=== PATIENT | female | born 1955 | race Caucasian/White ===

== ENCOUNTER 2018-03-01 17:01 | Emergency (ER) | payer MEDICARE ==
[~2018-03-01] VITALS: Ht 165.1 cm; Wt 104.5 kg
[2018-03-01] MEDS ORDERED: BUPR50TA PO (17:23)
[2018-03-01] MEDS ORDERED: ACET1TAB16 PO (17:23)
[2018-03-01] MEDS ORDERED: TRAZ1TAB14 PO (17:23)
[2018-03-01] MEDS ORDERED: LIDOCAINE VISCOUS 2% SOLN 15ML UDC SS STA (17:34)
[2018-03-01] MEDS ORDERED: IPRATROPIUM 0.5MG/ALBUTEROL 2.5MG INH SOL UD 3ML (DUONEB)(J7620) NEB ONE (17:45)
[2018-03-01] MEDS ORDERED: BENZONATATE 100 MG CAP PO ONE (17:45)
[2018-03-01] MEDS ORDERED: IBUPROFEN 600 MG TAB PO ONE (17:45)
[2018-03-01] MEDS ORDERED: ACETAMINOPHEN 325 MG TAB PO ONE (17:45)
[2018-03-01 18:00] LABS: BASO % 0.4 % (0.0-1.0); EOS % 0.1 % (0.0-3.0); HEMATOCRIT 41.5 % (36.0-47.0); HEMOGLOBIN 13.5 g/dl (12.0-15.5); LYMPH % 28.8 % (24.0-44.0); MEAN CORPUSCULAR HEMOGLOBIN 29.5 pg (27.0-33.0); MEAN CORPUSCULAR HGB CONC 32.5 g/dl (32.0-36.5); MEAN CORPUSCULAR VOLUME 90.6 fl (80.0-96.0); MONO # 0.8 10^3/uL (0.0-0.8); MONO % 11.6 % (0.0-5.0); NEUTROPHILS # 4.1 10^3/uL (1.8-7.7); NEUTROPHILS % 58.7 % (36.0-66.0); PLATELET COUNT, AUTOMATED 340 10^3/uL (150-450); RED BLOOD COUNT 4.58 10^6/uL (4.00-5.40); WHITE BLOOD COUNT 6.9 10^3/uL (4.0-10.0)
[2018-03-01 18:24] LABS: BLOOD UREA NITROGEN 12 MG/DL (7-18); CALCIUM LEVEL 8.4 MG/DL (8.8-10.2); CARBON DIOXIDE LEVEL 26 MEQ/L (21-32); CHLORIDE LEVEL 106 MEQ/L (98-107); CREATININE FOR GFR 0.83 MG/DL (0.55-1.30); GLOMERULAR FILTRATION RATE > 60.0 (>45); GLUCOSE, FASTING 94 MG/DL (70-100); POTASSIUM SERUM 4.1 MEQ/L (3.5-5.1); SODIUM LEVEL 140 MEQ/L (136-145)
--- NOTE | 2018-03-01 18:32 | REP ---
Clinical: Cough . Comparison: None . Technique: PA and lateral. Findings: The mediastinum and cardiac silhouette are normal. The lung ayers are clear and without acute consolidation, effusion, or pneumothorax. The skeletal structures are intact and normal. Impression: 1. No acute cardiopulmonary process. Electronically Signed by Jeb Valenzuela MD 03/01/2018 06:23 P
[2018-03-01] MEDS ORDERED: POLYTRIM OPTH DROPS 10ML OU STA (18:54)
[2018-03-01] MEDS ORDERED: ALBUTEROL 90 MCG/ACT 8GM HFA INHALER INH ONE (19:00)
[2018-03-01] MEDS ORDERED: POLYSOL OP (19:47)
[2018-03-01] MEDS ORDERED: TESS100C PO (19:47)
[2018-03-01 19:51] VITALS: BP 129/68
== END 2018-03-01 19:52 | disposition home or self-care (01) ==
LOC: M ED 17:01
DX: J06.9 Acute upper respiratory infection, unspecified (principal); H10.023 Other mucopurulent conjunctivitis, bilateral; I38 Endocarditis, valve unspecified; Z88.8 Allergy status to other drugs, medicaments and biological substances; Z88.5 Allergy status to narcotic agent; Z79.899 Other long term (current) drug therapy

== ENCOUNTER 2018-03-03 11:01 | Emergency (ER) | payer MEDICARE ==
[~2018-03-03] VITALS: Ht 165.1 cm; Wt 102.3 kg
[~2018-03-03 11:01] MED LIST: ACET1TAB16 PO; BUPR50TA PO; POLYSOL OP; TESS100C PO; TRAZ1TAB14 PO
[2018-03-03 11:32] VITALS: BP 144/92
== END 2018-03-03 12:55 | disposition home or self-care (01) ==
LOC: M ED 11:01
DX: H10.33 Unspecified acute conjunctivitis, bilateral (principal); Z98.84 Bariatric surgery status; Z88.8 Allergy status to other drugs, medicaments and biological substances; Z88.5 Allergy status to narcotic agent; Z79.899 Other long term (current) drug therapy; Z79.2 Long term (current) use of antibiotics

== ENCOUNTER → 2018-03-18 | Outpatient (REF) | payer MEDICARE ==
[2018-03-18 12:15] LABS: HEMATOCRIT 38.3 % (36.0-47.0); HEMOGLOBIN 12.3 g/dl (12.0-15.5); MEAN CORPUSCULAR HEMOGLOBIN 29.5 pg (27.0-33.0); MEAN CORPUSCULAR HGB CONC 32.1 g/dl (32.0-36.5); MEAN CORPUSCULAR VOLUME 91.8 fl (80.0-96.0); PLATELET COUNT, AUTOMATED 479 10^3/uL (150-450); RED BLOOD COUNT 4.17 10^6/uL (4.00-5.40); WHITE BLOOD COUNT 5.4 10^3/uL (4.0-10.0)
[2018-03-18 12:27] LABS: ALBUMIN 3.3 GM/DL (3.2-5.2); ALT/SGPT 18 U/L (12-78); BILIRUBIN,TOTAL 0.5 MG/DL (0.2-1.0); BLOOD UREA NITROGEN 12 MG/DL (7-18); CALCIUM LEVEL 8.9 MG/DL (8.8-10.2); CARBON DIOXIDE LEVEL 27 MEQ/L (21-32); CHLORIDE LEVEL 108 MEQ/L (98-107); CHOLESTEROL LEVEL 159 MG/DL (<200); CHOLESTEROL RISK RATIO 2.523 (<5); FERRITIN 28 NG/ML (8-252); FREE T4 1.19 NG/DL (0.76-1.46); GLOMERULAR FILTRATION RATE > 60.0 (>45); GLUCOSE, FASTING 85 MG/DL (70-100); HDL CHOLESTEROL 63 MG/DL (>40); IRON (FE) 53 UG/DL (50-170); LDL CHOLESTEROL 76 MG/DL (<100); NON-HDL-C 96 MG/DL; PERCENT SATURATION 16.7 % (13.2-45.0); POTASSIUM SERUM 4.2 MEQ/L (3.5-5.1); SODIUM LEVEL 141 MEQ/L (136-145); TOTAL IRON BINDING CAPACITY 317 UG/DL (250-450); TOTAL PROTEIN 6.3 GM/DL (6.4-8.2); TRIGLYCERIDES LEVEL 102 MG/DL (<150)
[2018-03-18 12:29] LABS: TOTAL 25(OH) VITAMIN D 55.3 NG/ML (30.0-100.0); VITAMIN B12 LEVEL 1280 PG/ML (247-911)
[2018-03-18 12:30] LABS: FOLATE > 24.0 NG/ML (>5.4)
== END ==
LOC: M SFHCPLAZ 08:13
PROVIDERS: ATTEND Physician Assistant
DX: E03.9 Hypothyroidism, unspecified (principal); Z98.84 Bariatric surgery status; Z13.220 Encounter for screening for lipoid disorders; E55.9 Vitamin D deficiency, unspecified; Z79.899 Other long term (current) drug therapy

== ENCOUNTER 2018-06-20 18:37 | Emergency (ER) | payer MEDICARE ==
[~2018-06-20] VITALS: Ht 165.1 cm; Wt 97.7 kg
[2018-06-20] MEDS ORDERED: OMEP-221 (18:43)
[2018-06-20] MEDS ORDERED: CYCL10TA (18:43)
[2018-06-20] MEDS ORDERED: LEVO25TA5 (18:43)
--- NOTE | 2018-06-20 19:41 | REP ---
REASON: Pain after trauma. PRIORS: None. Hairline distal radial and ulnar styloid fractures are present. The bones are demineralized. IMPRESSION: Fractures as described above. Electronically Signed by Bakari Sam DO 06/20/2018 07:47 P
[2018-06-20] MEDS ORDERED: ACETAMINOPH W/CODEINE #3 TAB UD PO ONE (20:45)
[2018-06-20] MEDS ORDERED: TYLETAB14 PO (21:30)
[2018-06-20 21:43] VITALS: BP 107/60
== END 2018-06-20 21:50 | disposition home or self-care (01) ==
LOC: M ED 18:37
DX: S52.592A Other fractures of lower end of left radius, initial encounter for closed fracture (principal); S52.612A Displaced fracture of left ulna styloid process, initial encounter for closed fracture; W01.0XXA Fall on same level from slipping, tripping and stumbling without subsequent striking against object, initial encounter; Y92.018 Other place in single-family (private) house as the place of occurrence of the external cause; E03.9 Hypothyroidism, unspecified; R56.9 Unspecified convulsions; F33.9 Major depressive disorder, recurrent, unspecified; Z98.84 Bariatric surgery status; Z79.899 Other long term (current) drug therapy; Z79.890 Hormone replacement therapy; Z88.5 Allergy status to narcotic agent; Z88.8 Allergy status to other drugs, medicaments and biological substances

== ENCOUNTER → 2018-10-14 | Outpatient (REF) | payer MEDICARE, MEDICAID ==
[~2018-10-14] MED LIST changes: +CYCL10TA; +LEVO25TA5; +OMEP-221; +TYLETAB14 PO
[2018-10-14 12:33] LABS: THYROID STIMULATING HORMONE 3.04 uIU/ML (0.358-3.740)
[2018-10-14 13:34] LABS: TOTAL 25(OH) VITAMIN D 31.6 NG/ML (30.0-100.0)
== END ==
LOC: M SFHCPLAZ 09:47
PROVIDERS: ATTEND Nurse Practitioner Family
DX: E55.9 Vitamin D deficiency, unspecified (principal); E03.9 Hypothyroidism, unspecified
CPT/HCPCS: 36415; 82306; 84443; G0463

== ENCOUNTER → 2019-01-06 | Outpatient (REF) | payer MEDICARE, MEDICAID ==
[2019-01-06 13:51] LABS: ALBUMIN 3.8 GM/DL (3.2-5.2); ALT/SGPT 20 U/L (12-78); BILIRUBIN,TOTAL 0.4 MG/DL (0.2-1.0); BLOOD UREA NITROGEN 13 MG/DL (7-18); CALCIUM LEVEL 9.4 MG/DL (8.8-10.2); CARBON DIOXIDE LEVEL 28 MEQ/L (21-32); CHLORIDE LEVEL 109 MEQ/L (98-107); CREATININE FOR GFR 0.93 MG/DL (0.55-1.30); GLOMERULAR FILTRATION RATE > 60.0 (>45); GLUCOSE, FASTING 80 MG/DL (70-100); POTASSIUM SERUM 4.5 MEQ/L (3.5-5.1); SODIUM LEVEL 141 MEQ/L (136-145); TOTAL PROTEIN 7.2 GM/DL (6.4-8.2)
[2019-01-06 14:04] LABS: HEMOGLOBIN A1c 5.7 %
== END ==
LOC: M SFHCPLAZ 11:59
PROVIDERS: ATTEND Physician Assistant Medical
DX: E66.01 Morbid (severe) obesity due to excess calories (principal); F41.1 Generalized anxiety disorder; E03.9 Hypothyroidism, unspecified
CPT/HCPCS: 36415; 80053; 83036; G0463

== ENCOUNTER → 2019-01-30 | Outpatient (CLI) | payer MEDICARE, MEDICAID ==
--- NOTE | 2019-02-13 13:09 | REPMRS ---
Patient History The patient states she has not had a clinical breast exam in over a year. Family history of breast cancer at age 60 in sister, colorectal cancer at age 80 in mother. No Hormone Replacement Therapy 3D TOMOSYNTHESIS WAS PERFORMED. [facility]%. Digital Woman Screen Mammo: January 30, 2019 - Exam #: [id number] Bilateral CC and MLO view(s) were taken. Technologist: Jennyfer Pereyra, Technologist Prior study comparison: July 15, 2016, bilateral digital mammo screening bilat, performed at [facility]. FINDINGS: There are scattered fibroglandular densities. There has been no change in the appearance of the mammogram from the prior studies. There is a mild amount of residual fibroglandular tissue which is fairly symmetric. There is no interval development of dominant mass, architectural distortion, or clustered microcalcification suggestive of malignancy. Assessment: BI-RADS/ACR category 1 mammogram. Negative Mammogram. Recommendation Routine screening mammogram in 1 year (for women over age 40). This mammogram was interpreted with the aid of an FDA-approved computer-aided dectection system. Electronically Signed By: Javier Bradley MD 02/13/19 [id number]
== END ==
LOC: M WHC 13:58
PROVIDERS: ATTEND Nurse Practitioner Family
DX: Z12.31 Encounter for screening mammogram for malignant neoplasm of breast (principal); Z80.3 Family history of malignant neoplasm of breast; Z80.0 Family history of malignant neoplasm of digestive organs; F41.1 Generalized anxiety disorder

== ENCOUNTER → 2019-03-02 | Outpatient (CLI) | payer MEDICARE, MEDICAID ==
[2019-03-02 19:54] LABS: FREE T4 0.91 NG/DL (0.76-1.46); THYROID STIMULATING HORMONE 1.78 uIU/ML (0.358-3.740)
== END ==
LOC: M PLALAB 14:11
PROVIDERS: ATTEND Physician Assistant Medical
DX: F41.1 Generalized anxiety disorder (principal); E03.9 Hypothyroidism, unspecified

== ENCOUNTER → 2019-03-09 | Outpatient (CLI) | payer MEDICARE, MEDICAID ==
--- NOTE | 2019-03-09 12:26 | REPPI ---
Six views right knee: 03/09/2019. Indication: Right knee pain. Comparison: None. Findings: There is narrowing of the medial compartment with medial spurring of the distal right femoral and proximal right tibial bones. The patellofemoral compartment is additionally narrowed with minimal spurring superiorly. There is no evidence of acute fracture. No significant pleural effusion is present. No lytic or blastic lesions are present. Impression: Osteoarthritic sequelae as described predominately involving the medial compartment. Electronically Signed by Delfino Peoples DO 03/09/2019 12:17 P
== END ==
LOC: M PLAIMG 11:42
PROVIDERS: ATTEND Physician Assistant Medical
DX: M17.11 Unilateral primary osteoarthritis, right knee (principal); M25.561 Pain in right knee

== ENCOUNTER → 2019-03-09 | Outpatient (REF) | payer MEDICARE, MEDICAID | LOC: M SFHCPLAZ 15:19 | PROVIDERS: ATTEND Physician Assistant Medical | DX: J02.9 Acute pharyngitis, unspecified (principal); E55.9 Vitamin D deficiency, unspecified | CPT/HCPCS: 36415; 80053; 82306; 83970; 87486; 87581; 87633; 87798; 87804; 87880; G0463 ==

== ENCOUNTER → 2019-03-09 | Outpatient (REF) | payer MEDICARE, MEDICAID ==
[2019-03-09 14:37] LABS: ALBUMIN 3.6 GM/DL (3.2-5.2); ALT/SGPT 22 U/L (12-78); BILIRUBIN,TOTAL 0.6 MG/DL (0.2-1.0); BLOOD UREA NITROGEN 17 MG/DL (7-18); CARBON DIOXIDE LEVEL 25 MEQ/L (21-32); CHLORIDE LEVEL 109 MEQ/L (98-107); CREATININE FOR GFR 0.95 MG/DL (0.55-1.30); GLOMERULAR FILTRATION RATE > 60.0 (>45); GLUCOSE, FASTING 87 MG/DL (70-100); POTASSIUM SERUM 4.1 MEQ/L (3.5-5.1); SODIUM LEVEL 141 MEQ/L (136-145); TOTAL PROTEIN 7.4 GM/DL (6.4-8.2)
[2019-03-09 14:45] LABS: PTH INTACT 84.4 PG/ML (18.5-88.0); TOTAL 25(OH) VITAMIN D 33.1 NG/ML (30.0-100.0)
== END ==
LOC: M SFHCPLAZ 11:32
PROVIDERS: ATTEND Physician Assistant Medical
DX: E55.9 Vitamin D deficiency, unspecified (principal)

== ENCOUNTER 2019-10-19 08:15 | Day surgery (SDC) | payer MEDICARE, MEDICAID ==
[~2019-10-19 08:15] MED LIST changes: +BUPR-69 PO; -BUPR50TA PO; +CYCL-707; -CYCL10TA
[2019-10-19] MEDS ORDERED: LIDOCAINE 2% 100MG/5ML SDV (FOR ANES.) As Ordered ONE (08:58)
[2019-10-19] MEDS ORDERED: propofoL 200 MG/20 ML VIAL As Ordered ONE (08:58)
[2019-10-19] MEDS ORDERED: GLUCAGON INJ 1MG VIAL As Ordered ONE (09:03)
--- NOTE | 2019-11-15 11:34 | ROOR ---
Patient Name: Trish Madsen Procedure Date: 10/19/2019 8:47 AM Date of : 1955 Age: 63 Room: [facility] Gender: Female Note Status: Store Keeper Override Procedure: Colonoscopy Indications: High risk colon cancer surveillance: Personal history of colonic polyps, Family history of colon cancer in a first-degree relative before age 60 years Providers: Ernesto MENCHACA MD Referring MD: Cindy GARCIA Requesting Provider: Medicines: Monitored Anesthesia Care Complications: No immediate complications. Procedure: Pre-Anesthesia Assessment: - The heart rate, respiratory rate, oxygen saturations, blood pressure, adequacy of pulmonary ventilation, and response to care were monitored throughout the procedure. The Colonoscope was introduced through the anus and advanced to the terminal ileum, with identification of the appendiceal orifice and IC valve. The colonoscopy was performed with difficulty due to inadequate bowel prep. Successful completion of the procedure was aided by lavage. The patient tolerated the procedure well. The quality of the bowel preparation was inadequate. The bowel preparation used was SUPREP via split dose instruction. The bowel preparation used was Milk of magnesia via single dose instruction. Findings: The perianal and digital rectal examinations were normal. A 5 mm polyp was found in the hepatic flexure. The polyp was sessile. The polyp was removed with a cold snare. Resection and retrieval were complete. Internal hemorrhoids were found during retroflexion. The hemorrhoids were medium-sized. The colon (entire examined portion) was redundant. The exam was otherwise without abnormality on direct and retroflexion views. Impression: - Preparation of the colon was inadequate. - One 5 mm polyp at the hepatic flexure, removed with a cold snare. Resected and retrieved. - Internal hemorrhoids. - Redundant colon. - The examination was otherwise normal on direct and retroflexion views. Recommendation: - Repeat colonoscopy in 2 years because the bowel preparation was suboptimal. - (Rec alternate colon preparation for next colonoscopy) Enresto MENCHACA MD 10/19/2019 9:16:41 AM Number of Addenda: 0 Note Initiated On: 10/19/2019 8:47 AM Estimated Blood Loss: Estimated blood loss: none.
== END 2019-10-19 10:20 | disposition home or self-care (01) ==
LOC: M SDC 08:15
PROVIDERS: ATTEND Internal Medicine Gastroenterology
DX: Z12.11 Encounter for screening for malignant neoplasm of colon (principal); Z86.010 Personal history of colon polyps; Z80.0 Family history of malignant neoplasm of digestive organs; K64.8 Other hemorrhoids; D12.3 Benign neoplasm of transverse colon; Q43.8 Other specified congenital malformations of intestine; E03.9 Hypothyroidism, unspecified; K21.9 Gastro-esophageal reflux disease without esophagitis; Z79.899 Other long term (current) drug therapy; Z88.8 Allergy status to other drugs, medicaments and biological substances
CPT/HCPCS: 45385; 88305; J1610

== ENCOUNTER → 2020-03-27 | Outpatient (REF) | payer MEDICARE, MEDICAID ==
[2020-03-27 14:09] LABS: BASO # 0.1 10^3/uL (0.0-0.2); BASO % 0.6 % (0.0-1.0); EOS # 0.1 10^3/uL (0.0-0.5); EOS % 0.9 % (0.0-3.0); HEMOGLOBIN 13.6 g/dl (12.0-15.5); LYMPH # 2.3 10^3/uL (1.5-5.0); MEAN CORPUSCULAR HEMOGLOBIN 28.1 pg (27.0-33.0); MEAN CORPUSCULAR HGB CONC 31.6 g/dl (32.0-36.5); MEAN CORPUSCULAR VOLUME 88.8 fl (80.0-96.0); MONO % 10.2 % (0.0-5.0); NEUTROPHILS # 6.1 10^3/uL (1.5-8.5); NEUTROPHILS % 63.8 % (36.0-66.0); PLATELET COUNT, AUTOMATED 455 10^3/uL (150-450); RED BLOOD COUNT 4.84 10^6/uL (4.00-5.40); WHITE BLOOD COUNT 9.5 10^3/uL (4.0-10.0)
[2020-03-27 14:35] LABS: HEMOGLOBIN A1c 5.3 %
[2020-03-27 14:41] LABS: ALBUMIN 3.6 GM/DL (3.2-5.2); ALT/SGPT 21 U/L (12-78); BILIRUBIN,TOTAL 0.4 MG/DL (0.2-1.0); BLOOD UREA NITROGEN 16 MG/DL (7-18); CALCIUM LEVEL 9.5 MG/DL (8.8-10.2); CARBON DIOXIDE LEVEL 28 MEQ/L (21-32); CHLORIDE LEVEL 108 MEQ/L (98-107); CHOLESTEROL LEVEL 199 MG/DL (<200); CHOLESTEROL RISK RATIO 2.487 (<5); CREATININE FOR GFR 0.96 MG/DL (0.55-1.30); FREE T4 1.03 NG/DL (0.76-1.46); GLOMERULAR FILTRATION RATE > 60.0 (>45); GLUCOSE, FASTING 83 MG/DL (70-100); HDL CHOLESTEROL 80 MG/DL (>40); LDL CHOLESTEROL 91 MG/DL (<100); NON-HDL-C 119 MG/DL; POTASSIUM SERUM 4.5 MEQ/L (3.5-5.1); SODIUM LEVEL 140 MEQ/L (136-145); TOTAL PROTEIN 7.2 GM/DL (6.4-8.2); TRIGLYCERIDES LEVEL 138 MG/DL (<150)
[2020-03-27 14:43] LABS: TOTAL 25(OH) VITAMIN D 41.3 NG/ML (30.0-100.0)
== END ==
LOC: M SFHCPLAZ 10:54
PROVIDERS: ATTEND Physician Assistant Medical
DX: E55.9 Vitamin D deficiency, unspecified (principal); E03.9 Hypothyroidism, unspecified; K21.9 Gastro-esophageal reflux disease without esophagitis; Z13.220 Encounter for screening for lipoid disorders; E66.9 Obesity, unspecified; Z79.899 Other long term (current) drug therapy
CPT/HCPCS: 36415; 80053; 80061; 82306; 83036; 83970; 84439; 84443; 85025; G0463

== ENCOUNTER → 2020-04-15 | Outpatient (CLI) | payer MEDICARE, MEDICAID ==
--- NOTE | 2020-04-15 12:21 | REPMRS ---
Patient History The patient states she has not had a clinical breast exam in over a year. Family history of breast cancer at age 60 in sister, colorectal cancer at age 80 in mother. No Hormone Replacement Therapy Digital Woman Screen Mammo: April 15, 2020 - Exam #: [id number] Bilateral CC and MLO view(s) were taken. Technologist: Nicole Snyder, Technologist Prior study comparison: January 30, 2019, bilateral digital woman screen mammo performed at [facility]. July 15, 2016, bilateral digital mammo screening bilat, performed at [facility]. FINDINGS: There are scattered fibroglandular densities. The Volpara volumetric breast density category is:B. There has been no change in the appearance of the mammogram from the prior studies. There is a mild amount of scattered fibroglandular density which is fairly symmetric. There is no interval development of dominant mass, architectural distortion, or grouped microcalcification suggestive of malignancy. 3-D tomosynthesis shows no additional findings. Assessment: BI-RADS/ACR category 1 mammogram. Negative Mammogram. Recommendation Routine screening mammogram of both breasts in 1 year (for women over age 40). This patient's [facility] Lifetime Breast Cancer Risk is estimated at 10.2 %. This mammogram was interpreted with the aid of an FDA-approved computer-aided dectection system. Electronically Signed By: Cj Gupta MD 04/15/20 [id number]
== END ==
LOC: M WHC 10:53
PROVIDERS: ATTEND Physician Assistant Medical
DX: Z12.31 Encounter for screening mammogram for malignant neoplasm of breast (principal); Z80.3 Family history of malignant neoplasm of breast; Z80.0 Family history of malignant neoplasm of digestive organs

== ENCOUNTER 2020-09-26 08:41 | Emergency (ER) | payer MEDICARE, MEDICAID ==
[~2020-09-26] VITALS: Ht 165.1 cm; Wt 102.2 kg
[2020-09-26] MEDS ORDERED: KETOROLAC 30 MG/ML 1ML VIAL IV ONE (10:50)
[2020-09-26 11:00] LABS: BASO # 0.1 10^3/uL (0.0-0.2); BASO % 0.6 % (0.0-1.0); EOS # 0.1 10^3/uL (0.0-0.5); EOS % 1.3 % (0.0-3.0); HEMATOCRIT 43.4 % (36.0-47.0); HEMOGLOBIN 14.1 g/dl (12.0-15.5); LYMPH # 2.8 10^3/uL (1.5-5.0); LYMPH % 34.4 % (24.0-44.0); MEAN CORPUSCULAR HEMOGLOBIN 29.3 pg (27.0-33.0); MEAN CORPUSCULAR HGB CONC 32.5 g/dl (32.0-36.5); MONO # 0.9 10^3/uL (0.0-0.8); MONO % 11.1 % (2.0-8.0); NEUTROPHILS # 4.3 10^3/uL (1.5-8.5); NEUTROPHILS % 52.2 % (36.0-66.0); PLATELET COUNT, AUTOMATED 401 10^3/uL (150-450); RED BLOOD COUNT 4.82 10^6/uL (4.00-5.40); WHITE BLOOD COUNT 8.2 10^3/uL (4.0-10.0)
[2020-09-26 11:30] LABS: ERYTHROCYTE SEDIMENTATION RATE 10 mm/hr (0-30)
[2020-09-26 12:03] VITALS: BP 154/78
== END 2020-09-26 12:05 | disposition home or self-care (01) ==
LOC: M ED 08:41
DX: R51.9 Headache, unspecified (principal); E03.9 Hypothyroidism, unspecified; G40.909 Epilepsy, unspecified, not intractable, without status epilepticus; Z88.5 Allergy status to narcotic agent; Z88.8 Allergy status to other drugs, medicaments and biological substances; Z79.899 Other long term (current) drug therapy; Z79.890 Hormone replacement therapy
CPT/HCPCS: 36415; 85025; 85652; 96374; 99284; J1885

== ENCOUNTER → 2021-01-09 | Outpatient (CLI) | payer MEDICARE, MEDICAID ==
--- NOTE | 2021-01-09 14:19 | DEXAMM ---
INDICATION: POSTMENOPAUSAL BONE LOSS. COMPARISON: None. TECHNIQUE: Bone density was measured using dual-energy x-ray absorptiometry (DEXA). FINDINGS: AP SPINE L1-L4 BMD 1.088 g/cm2 Young Adult T-Score -0.9 Age Matched Z-Score 0.7. LT FEMUR, TOTAL BMD 0.639 g/cm2 Young Adult T-Score -2.9 Age Matched Z-Score -1.7. LT NECK BMD 0.570 g/cm2 Young Adult T-Score -3.4 Age Matched Z-Score -1.9. RT FEMUR, TOTAL BMD 0.596 g/cm2 Young Adult T-Score -3.3 Age Matched Z-Score -2.0. RT NECK BMD 0.522 g/cm2 Young Adult T-Score -3.7 Age Matched Z-Score -2.2. IMPRESSION: There is normal bone density of the spine. There is osteoporosis of the left hip. There is osteoporosis of the right hip. FOLLOW-UP: Recommendation for the next bone density exam: 2 years. <Electronically signed by Javier Bradley > 01/09/21 [id number]
== END ==
LOC: M WHC 13:15
PROVIDERS: ATTEND Physician Assistant Medical
DX: M81.0 Age-related osteoporosis without current pathological fracture (principal); Z12.31 Encounter for screening mammogram for malignant neoplasm of breast

== ENCOUNTER 2021-04-29 09:31 | Inpatient (IN) | payer OTHER, MEDICAID ==
[~2021-04-29] VITALS: Ht 165.1 cm; Wt 108.4 kg
[~2021-04-29 09:31] MED LIST changes: -CYCL-707; +CYCL-707 PO; -OMEP-221; +OMEP40CA5 PO
[2021-04-29] MEDS ORDERED: MORPHINE 4 MG/ML 1ML VIAL/SYRINGE (J2270) IV ONE ×2 (09:50→11:55)
[2021-04-29] MEDS ORDERED: ONDANSETRON 4MG/2ML VIAL IV ONE (09:50)
[2021-04-29] MEDS: NS 1,000 ML IV SCH ×2 (10:15→23:58)
[2021-04-29 10:31] LABS: BASO % 0.5 % (0.0-1.0); EOS # 0.1 10^3/uL (0.0-0.5); EOS % 1.1 % (0.0-3.0); HEMATOCRIT 42.3 % (36.0-47.0); HEMOGLOBIN 13.8 g/dl (12.0-15.5); LYMPH # 1.9 10^3/uL (1.5-5.0); LYMPH % 25.6 % (24.0-44.0); MEAN CORPUSCULAR HEMOGLOBIN 29.3 pg (27.0-33.0); MEAN CORPUSCULAR HGB CONC 32.6 g/dl (32.0-36.5); MEAN CORPUSCULAR VOLUME 89.8 fl (80.0-96.0); MONO # 0.8 10^3/uL (0.0-0.8); MONO % 11.5 % (2.0-8.0); NEUTROPHILS # 4.4 10^3/uL (1.5-8.5); NEUTROPHILS % 60.8 % (36.0-66.0); PLATELET COUNT, AUTOMATED 404 10^3/uL (150-450); RED BLOOD COUNT 4.71 10^6/uL (4.00-5.40); WHITE BLOOD COUNT 7.3 10^3/uL (4.0-10.0)
[2021-04-29 10:42] LABS: INR 0.99; PARTIAL THROMBOPLASTIN TIME 31.2 SECONDS (25.9-37.0); PROTHROMBIN TIME 13.5 SECONDS (12.7-14.5)
[2021-04-29 11:02] LABS: BLOOD UREA NITROGEN 16 MG/DL (7-18); CALCIUM LEVEL 9.2 MG/DL (8.8-10.2); CARBON DIOXIDE LEVEL 26 MEQ/L (21-32); CHLORIDE LEVEL 107 MEQ/L (98-107); GLOMERULAR FILTRATION RATE > 60.0 (>45); GLUCOSE, FASTING 82 MG/DL (70-100); POTASSIUM SERUM 4.3 MEQ/L (3.5-5.1); SODIUM LEVEL 140 MEQ/L (136-145)
[2021-04-29] MEDS ORDERED: BUPR300T92 PO (11:04)
[2021-04-29] MEDS ORDERED: LEVO50TA5 PO (11:06)
[2021-04-29] MEDS ORDERED: PROP10TA56 PO (11:08)
[2021-04-29] MEDS ORDERED: BACL5TAB2 PO (11:08)
[2021-04-29] MEDS ORDERED: AMLO1TAB24 PO (11:08)
[2021-04-29] MEDS ORDERED: ZOLP5TAB PO (11:08)
[2021-04-29] MEDS ORDERED: MELA10CA6 PO (11:12)
[2021-04-29] MEDS ORDERED: VITMTA PO (11:12)
[2021-04-29] MEDS ORDERED: CALC500C16 PO (11:12)
[2021-04-29] MEDS ORDERED: B-122500 PO (11:12)
[2021-04-29] MEDS ORDERED: D31000TA2 PO (11:12)
[2021-04-29] MEDS ORDERED: HOME MED LIST COMPLETE! XX SCH (11:15)
[2021-04-29] MEDS ORDERED: MOM 30ML SUSPENSION UDC PO PRN (11:45)
[2021-04-29] MEDS ORDERED: ACETAMINOPHEN TAB 650MG DOSE (2X325MG) PO PRN (11:45)
[2021-04-29 12:00] LABS: RSV AMPLIFICATION NEGATIVE (NEGATIVE)
[2021-04-29] MEDS: CYCLOBENZAPRINE 10MG TABLET PO PRN (12:31)
[2021-04-29] MEDS: MORPHINE 4 MG/ML 1ML VIAL/SYRINGE (J2270) IV PRN ×2 (15:46→23:37)
[2021-04-29] MEDS: NORCO, ANEXSIA 5/325MG TABLET (HYDROcodone/ACETAMINOPHEN) PO PRN (19:41)
[2021-04-29 22:30] VITALS: BP 124/76
[2021-04-29] MEDS: amLODIPine 5 MG TAB PO SCH (23:38)
[2021-04-30] MEDS: PROPRANOLOL 10 MG TAB PO SCH ×3 (00:45→21:00)
[2021-04-30] MEDS: NORCO, ANEXSIA 5/325MG TABLET (HYDROcodone/ACETAMINOPHEN) PO PRN ×3 (01:25→12:34)
[2021-04-30] MEDS: MORPHINE 4 MG/ML 1ML VIAL/SYRINGE (J2270) IV PRN ×2 (04:59→11:02)
[2021-04-30] MEDS: LEVOTHYROXINE 50MCG TABLET (0.05MG) PO SCH (04:59)
[2021-04-30 05:58] LABS: HEMATOCRIT 40.5 % (36.0-47.0); HEMOGLOBIN 13.2 g/dl (12.0-15.5); MEAN CORPUSCULAR HEMOGLOBIN 29.5 pg (27.0-33.0); MEAN CORPUSCULAR HGB CONC 32.6 g/dl (32.0-36.5); MEAN CORPUSCULAR VOLUME 90.6 fl (80.0-96.0); PLATELET COUNT, AUTOMATED 351 10^3/uL (150-450); RED BLOOD COUNT 4.47 10^6/uL (4.00-5.40); WHITE BLOOD COUNT 9.1 10^3/uL (4.0-10.0)
[2021-04-30 06:00] VITALS: BP 105/64
[2021-04-30 06:28] LABS: BLOOD UREA NITROGEN 13 MG/DL (7-18); CALCIUM LEVEL 8.4 MG/DL (8.8-10.2); CARBON DIOXIDE LEVEL 23 MEQ/L (21-32); CHLORIDE LEVEL 105 MEQ/L (98-107); CREATININE FOR GFR 0.66 MG/DL (0.55-1.30); GLOMERULAR FILTRATION RATE > 60.0 (>45); GLUCOSE, FASTING 108 MG/DL (70-100); MAGNESIUM LEVEL 1.9 MG/DL (1.8-2.4); POTASSIUM SERUM 4.4 MEQ/L (3.5-5.1); SODIUM LEVEL 135 MEQ/L (136-145)
[2021-04-30] MEDS: MULTIVITAMINS/MINERALS THERAP 1 TAB PO SCH (08:10)
[2021-04-30] MEDS: CYANOCOBALAMIN 500 MCG TAB PO SCH (08:10)
[2021-04-30] MEDS: buPROPion **XL** TABLET 150MG (WELLBUTRIN XL) PO SCH (08:10)
[2021-04-30] MEDS: VITAMIN D 1,000 INTERNATIONAL UNITS TABLET PO SCH (08:11)
[2021-04-30] MEDS: CALCIUM CARBONATE 500 MG CHEW U/D PO SCH (08:12)
[2021-04-30] MEDS ORDERED: PROPRANOLOL 10 MG TAB PO SCH (09:00)
[2021-04-30] MEDS ORDERED: BACLOFEN 5MG PER 1/2 TABLET PO SCH (09:00)
[2021-04-30] MEDS: OMEPRAZOLE 20MG CAP PO SCH (09:00)
[2021-04-30] MEDS ORDERED: NS 1,000 ML IV SCH (11:30)
[2021-04-30 14:00] VITALS: BP 106/62
[2021-04-30] MEDS ORDERED: LIDOCAINE W/EPINEPHRINE 1% 20ML VIAL As Ordered ONE (16:16)
[2021-04-30] MEDS ORDERED: BUPIVACAINE HCL 0.25% 10ML VIAL As Ordered ONE (16:16)
[2021-04-30] MEDS ORDERED: ceFAZolin 2 GM/D5W 50 ML IV BAG (J0690 PER 500MG) As Ordered ONE (16:16)
[2021-04-30] MEDS ORDERED: TRANEXAMIC ACID 100 MG/ML 10ML VIAL As Ordered ONE ×2 (16:16→18:35)
[2021-04-30] MEDS ORDERED: BUPIVACAINE LIPOSOME/PF 1.3% 20ML VIAL (13.3MG/ML)(EXPAREL)(C9290 PER1MG) As Ordered ONE (16:16)
[2021-04-30] MEDS ORDERED: fentaNYL 100 MCG/2 ML INJECTION As Ordered ONE ×3 (16:57→20:26)
[2021-04-30] MEDS ORDERED: ROCURONIUM BROMIDE 50 MG/5 ML VIAL As Ordered ONE ×2 (16:57→17:38)
[2021-04-30] MEDS ORDERED: MIDAZOLAM INJ 2MG/2ML VIAL (J2250 PER 1MG) As Ordered ONE (16:57)
[2021-04-30] MEDS ORDERED: LIDOCAINE 2% 100MG/5ML SDV (FOR ANES.) As Ordered ONE (16:57)
[2021-04-30] MEDS ORDERED: propofoL 500 MG/50 ML VIAL As Ordered ONE (16:57)
[2021-04-30] MEDS ORDERED: PHENYLephrine 500MCG 5ML (100MCG/ML) SYRINGE As Ordered ONE ×3 (16:57→19:01)
[2021-04-30] MEDS ORDERED: dexameTHASONE 4 MG/ML 1ML VIAL (J1100 PER 1MG) As Ordered ONE (17:02)
[2021-04-30] MEDS ORDERED: ONDANSETRON 4MG/2ML VIAL As Ordered ONE ×2 (17:08→20:25)
[2021-04-30] MEDS ORDERED: VANCOMYCIN 1000MG/20ML VIAL As Ordered ONE (18:35)
[2021-04-30] MEDS ORDERED: DESFLURANE 240 ML INHALANT As Ordered ONE (18:35)
[2021-04-30] MEDS ORDERED: ACETAMINOPHEN 1000MG 100ML IV BTL (OFIRMEV) (J0131 PER 10MG) As Ordered ONE (18:46)
[2021-04-30] MEDS ORDERED: PHENYLEPHRINE 10MG/ML 1ML VIAL (J2370 PER 1) As Ordered ONE (19:33)
[2021-04-30] MEDS ORDERED: KETOROLAC 60MG 2ML VIAL As Ordered ONE (19:38)
[2021-04-30] MEDS ORDERED: SUGAMMADEX SODIUM 500 MG/5 ML VIAL (BRIDION) As Ordered ONE (19:38)
[2021-04-30] MEDS ORDERED: fentaNYL 100 MCG/2 ML INJECTION IV PRN (20:30)
[2021-04-30] MEDS ORDERED: ONDANSETRON 4MG/2ML VIAL IV PRN ×2 (20:30→21:20)
[2021-04-30] MEDS ORDERED: METOCLOPRAMIDE INJ 10MG/2ML VIAL (J2765 PER 1) IV PRN (20:30)
[2021-04-30] MEDS ORDERED: LR 1,000 ML IV SCH (20:30)
[2021-04-30] MEDS: BACLOFEN 5MG PER 1/2 TABLET PO SCH (21:00)
[2021-04-30] MEDS: amLODIPine 5 MG TAB PO SCH (21:00)
[2021-04-30] MEDS ORDERED: zolPIDEM TARTRATE 5 MG TAB PO SCH (21:00)
[2021-04-30] MEDS: zolPIDEM TARTRATE 5 MG TAB PO SCH (21:00)
[2021-04-30] MEDS ORDERED: MORPHINE 4 MG/ML 1ML VIAL/SYRINGE (J2270) IV PRN ×2 (21:20→21:25)
[2021-04-30] MEDS ORDERED: PERCOCET 5MG/325MG TAB PO PRN (21:20)
[2021-04-30] MEDS ORDERED: MORPHINE 2 MG/ML 1ML VIAL (J2270) IV PRN (21:20)
[2021-04-30 21:45] VITALS: BP 114/69
[2021-04-30] MEDS: LR 1,000 ML IV SCH (21:59)
[2021-04-30 22:15] VITALS: BP 114/70
[2021-04-30 23:15] VITALS: BP 113/70
[2021-05-01] VITALS (8 sets, daily range): BP systolic 95–121; BP diastolic 51–89
[2021-05-01] MEDS: ceFAZolin SOD 2 GM in IV 1 EA IV SCH ×2 (00:59→11:09)
[2021-05-01] MEDS: LEVOTHYROXINE 50MCG TABLET (0.05MG) PO SCH (06:31)
[2021-05-01] MEDS: ACETAMINOPHEN TAB 650MG DOSE (2X325MG) PO PRN ×2 (06:35→23:13)
[2021-05-01] MEDS: CALCIUM CARBONATE 500 MG CHEW U/D PO SCH (08:33)
[2021-05-01] MEDS: OMEPRAZOLE 20MG CAP PO SCH (08:34)
[2021-05-01] MEDS: buPROPion **XL** TABLET 150MG (WELLBUTRIN XL) PO SCH (08:34)
[2021-05-01] MEDS: VITAMIN D 1,000 INTERNATIONAL UNITS TABLET PO SCH (08:34)
[2021-05-01] MEDS: CYANOCOBALAMIN 500 MCG TAB PO SCH (08:34)
[2021-05-01] MEDS: MULTIVITAMINS/MINERALS THERAP 1 TAB PO SCH (08:34)
[2021-05-01] MEDS: PROPRANOLOL 10 MG TAB PO SCH ×2 (08:35→23:04)
[2021-05-01] MEDS: PERCOCET 5MG/325MG TAB PO PRN ×2 (08:36→18:39)
[2021-05-01] MEDS ORDERED: ASPIRIN ENTERIC 325 MG TAB PO SCH (09:00)
[2021-05-01 09:03] LABS: HEMATOCRIT 35.5 % (36.0-47.0); HEMOGLOBIN 11.7 g/dl (12.0-15.5); MEAN CORPUSCULAR HEMOGLOBIN 29.3 pg (27.0-33.0); PLATELET COUNT, AUTOMATED 350 10^3/uL (150-450); RED BLOOD COUNT 3.99 10^6/uL (4.00-5.40); WHITE BLOOD COUNT 13.5 10^3/uL (4.0-10.0)
[2021-05-01 09:30] LABS: CALCIUM LEVEL 8.7 MG/DL (8.8-10.2); CREATININE FOR GFR 1.04 MG/DL (0.55-1.30); GLOMERULAR FILTRATION RATE 56.4 (>45); POTASSIUM SERUM 4.3 MEQ/L (3.5-5.1)
[2021-05-01] MEDS: LR 1,000 ML IV SCH (10:40)
[2021-05-01] MEDS ORDERED: NS 500 ML IV ONE (17:50)
[2021-05-01] MEDS: CYCLOBENZAPRINE 10MG TABLET PO PRN (18:40)
[2021-05-01] MEDS ORDERED: NORCO, ANEXSIA 5/325MG TABLET (HYDROcodone/ACETAMINOPHEN) PO PRN (20:00)
[2021-05-01] MEDS ORDERED: NS 1,000 ML IV SCH (20:15)
[2021-05-01 20:40] LABS: HEMATOCRIT 31.2 % (36.0-47.0); HEMOGLOBIN 10.3 g/dl (12.0-15.5)
[2021-05-01] MEDS: amLODIPine 5 MG TAB PO SCH (23:05)
[2021-05-01] MEDS: BACLOFEN 5MG PER 1/2 TABLET PO SCH (23:13)
[2021-05-01] MEDS: zolPIDEM TARTRATE 5 MG TAB PO SCH (23:13)
[2021-05-01] MEDS: ASPIRIN 81MG ENTERIC TABLET PO SCH (23:13)
[2021-05-02] MEDS: PERCOCET 5MG/325MG TAB PO PRN ×3 (02:38→14:36)
[2021-05-02] MEDS: LEVOTHYROXINE 50MCG TABLET (0.05MG) PO SCH (05:43)
[2021-05-02 06:29] VITALS: BP 103/58
[2021-05-02] MEDS: OMEPRAZOLE 20MG CAP PO SCH (08:03)
[2021-05-02] MEDS: buPROPion **XL** TABLET 150MG (WELLBUTRIN XL) PO SCH (08:03)
[2021-05-02] MEDS: CYANOCOBALAMIN 500 MCG TAB PO SCH (08:04)
[2021-05-02] MEDS: MULTIVITAMINS/MINERALS THERAP 1 TAB PO SCH (08:04)
[2021-05-02] MEDS: CALCIUM CARBONATE 500 MG CHEW U/D PO SCH (08:04)
[2021-05-02] MEDS: VITAMIN D 1,000 INTERNATIONAL UNITS TABLET PO SCH (08:04)
[2021-05-02] MEDS: ASPIRIN 81MG ENTERIC TABLET PO SCH ×2 (08:04→20:04)
[2021-05-02] MEDS: PROPRANOLOL 10 MG TAB PO SCH ×2 (08:05→20:09)
[2021-05-02 08:59] LABS: HEMATOCRIT 35.5 % (36.0-47.0); HEMOGLOBIN 11.4 g/dl (12.0-15.5); MEAN CORPUSCULAR HEMOGLOBIN 29.3 pg (27.0-33.0); MEAN CORPUSCULAR HGB CONC 32.1 g/dl (32.0-36.5); MEAN CORPUSCULAR VOLUME 91.3 fl (80.0-96.0); PLATELET COUNT, AUTOMATED 313 10^3/uL (150-450); RED BLOOD COUNT 3.89 10^6/uL (4.00-5.40); WHITE BLOOD COUNT 12.4 10^3/uL (4.0-10.0)
[2021-05-02 09:18] LABS: BLOOD UREA NITROGEN 16 MG/DL (7-18); CALCIUM LEVEL 8.9 MG/DL (8.8-10.2); CARBON DIOXIDE LEVEL 25 MEQ/L (21-32); CHLORIDE LEVEL 109 MEQ/L (98-107); CREATININE FOR GFR 0.88 MG/DL (0.55-1.30); GLOMERULAR FILTRATION RATE > 60.0 (>45); GLUCOSE, FASTING 91 MG/DL (70-100); POTASSIUM SERUM 4.1 MEQ/L (3.5-5.1); SODIUM LEVEL 140 MEQ/L (136-145)
[2021-05-02] MEDS: ACETAMINOPHEN TAB 650MG DOSE (2X325MG) PO PRN ×2 (09:33→23:36)
[2021-05-02] MEDS ORDERED: NS 1,000 ML IV ONE (10:20)
[2021-05-02] MEDS ORDERED: MIRALAX *UNIT DOSE* 17GM PACKET PO PRN (13:45)
[2021-05-02 14:00] VITALS: BP 115/64
[2021-05-02] MEDS: DOCUSATE SODIUM 100MG CAPSULE PO SCH ×2 (14:41→20:05)
[2021-05-02] MEDS: BACLOFEN 5MG PER 1/2 TABLET PO SCH (20:05)
[2021-05-02] MEDS: zolPIDEM TARTRATE 5 MG TAB PO SCH (20:05)
[2021-05-02] MEDS: amLODIPine 5 MG TAB PO SCH (20:09)
[2021-05-02 20:12] VITALS: BP 110/48
[2021-05-02 22:00] VITALS: BP 127/77
[2021-05-03] MEDS: LEVOTHYROXINE 50MCG TABLET (0.05MG) PO SCH (05:47)
[2021-05-03] MEDS: ACETAMINOPHEN TAB 650MG DOSE (2X325MG) PO PRN ×2 (05:51→12:47)
[2021-05-03 06:00] VITALS: BP 118/45
[2021-05-03 06:23] LABS: HEMATOCRIT 28.6 % (36.0-47.0); HEMOGLOBIN 9.5 g/dl (12.0-15.5); MEAN CORPUSCULAR HEMOGLOBIN 29.6 pg (27.0-33.0); MEAN CORPUSCULAR HGB CONC 33.2 g/dl (32.0-36.5); MEAN CORPUSCULAR VOLUME 89.1 fl (80.0-96.0); PLATELET COUNT, AUTOMATED 290 10^3/uL (150-450); RED BLOOD COUNT 3.21 10^6/uL (4.00-5.40); WHITE BLOOD COUNT 9.3 10^3/uL (4.0-10.0)
[2021-05-03 06:51] LABS: BLOOD UREA NITROGEN 11 MG/DL (7-18); CALCIUM LEVEL 8.5 MG/DL (8.8-10.2); CARBON DIOXIDE LEVEL 26 MEQ/L (21-32); CHLORIDE LEVEL 111 MEQ/L (98-107); CREATININE FOR GFR 0.56 MG/DL (0.55-1.30); GLOMERULAR FILTRATION RATE > 60.0 (>45); GLUCOSE, FASTING 90 MG/DL (70-100); POTASSIUM SERUM 3.9 MEQ/L (3.5-5.1); SODIUM LEVEL 141 MEQ/L (136-145)
[2021-05-03] MEDS: DOCUSATE SODIUM 100MG CAPSULE PO SCH (09:29)
[2021-05-03] MEDS: ASPIRIN 81MG ENTERIC TABLET PO SCH (09:29)
[2021-05-03] MEDS: CALCIUM CARBONATE 500 MG CHEW U/D PO SCH (09:29)
[2021-05-03] MEDS: MULTIVITAMINS/MINERALS THERAP 1 TAB PO SCH (09:29)
[2021-05-03] MEDS: CYANOCOBALAMIN 500 MCG TAB PO SCH (09:29)
[2021-05-03] MEDS: OMEPRAZOLE 20MG CAP PO SCH (09:30)
[2021-05-03] MEDS: buPROPion **XL** TABLET 150MG (WELLBUTRIN XL) PO SCH (09:30)
[2021-05-03] MEDS: VITAMIN D 1,000 INTERNATIONAL UNITS TABLET PO SCH (09:30)
[2021-05-03 09:31] VITALS: BP 140/64
[2021-05-03] MEDS: PROPRANOLOL 10 MG TAB PO SCH (09:31)
[2021-05-03 12:12] LABS: HEMATOCRIT 30.2 % (36.0-47.0); MEAN CORPUSCULAR HEMOGLOBIN 29.3 pg (27.0-33.0); MEAN CORPUSCULAR HGB CONC 33.1 g/dl (32.0-36.5); MEAN CORPUSCULAR VOLUME 88.6 fl (80.0-96.0); PLATELET COUNT, AUTOMATED 322 10^3/uL (150-450); RED BLOOD COUNT 3.41 10^6/uL (4.00-5.40); WHITE BLOOD COUNT 10.4 10^3/uL (4.0-10.0)
[2021-05-03] MEDS ORDERED: DOCU-153 PO (12:43)
[2021-05-03] MEDS ORDERED: HYDR-3715 PO (12:43)
[2021-05-03] MEDS ORDERED: ACE65ERTAB PO (12:43)
[2021-05-03] MEDS ORDERED: ASPI-551 PO (12:43)
[2021-05-03 14:00] VITALS: BP 128/71
[2022-04-29] MEDS ORDERED: PROPRANOLOL 10 MG TAB PO SCH (21:00)
[2022-04-29] MEDS ORDERED: zolPIDEM TARTRATE 5 MG TAB PO SCH (21:00)
== END 2021-05-03 16:05 | disposition home health service (06) | DRG 522 ==
LOC: EDBD 09:31 → M ED 12:01 → M ED INP 12:03 → ENRESERV 19:53 → M MS5PR 22:45
PROVIDERS: ADMIT Internal Medicine; ATTEND Internal Medicine
PROC: 0SRB0J9 Replacement of Left Hip Joint with Synthetic Substitute, Cemented, Open Approach (ICD-10-PCS; principal; 2021-04-30 15:00)
DX: S72.042A Displaced fracture of base of neck of left femur, initial encounter for closed fracture (principal); Z68.41 Body mass index [BMI] 40.0-44.9, adult; W00.0XXA Fall on same level due to ice and snow, initial encounter; Y93.89 Activity, other specified; Y99.8 Other external cause status; Y92.008 Other place in unspecified non-institutional (private) residence as the place of occurrence of the external cause; I10 Essential (primary) hypertension; F32.A Depression, unspecified; E53.8 Deficiency of other specified B group vitamins; E66.9 Obesity, unspecified; M81.0 Age-related osteoporosis without current pathological fracture; G89.29 Other chronic pain; E03.9 Hypothyroidism, unspecified; K21.9 Gastro-esophageal reflux disease without esophagitis; F41.9 Anxiety disorder, unspecified; Z98.84 Bariatric surgery status; Z90.49 Acquired absence of other specified parts of digestive tract; Z20.822 Contact with and (suspected) exposure to COVID-19; Z79.899 Other long term (current) drug therapy; Z88.5 Allergy status to narcotic agent; Z88.8 Allergy status to other drugs, medicaments and biological substances

== ENCOUNTER → 2021-05-09 | Outpatient (CLI) | payer OTHER, MEDICAID ==
[~2021-05-09] MED LIST changes: +ACE65ERTAB PO; +AMLO1TAB24 PO; +ASPI-551 PO; +B-122500 PO; +BACL5TAB2 PO; +BUPR300T92 PO; +CALC500C16 PO; +DOCU-153 PO; +HYDR-3715 PO; +LEVO50TA5 PO; +MELA10CA6 PO; +PROP10TA56 PO; +VITA100093 PO; +VITMTA PO; +ZOLP5TAB PO
[2021-05-09 17:46] LABS: BASO # 0.1 10^3/uL (0.0-0.2); BASO % 0.5 % (0.0-1.0); EOS # 0.2 10^3/uL (0.0-0.5); EOS % 1.9 % (0.0-3.0); HEMATOCRIT 34.8 % (36.0-47.0); HEMOGLOBIN 11.2 g/dl (12.0-15.5); LYMPH # 2.5 10^3/uL (1.5-5.0); LYMPH % 23.2 % (24.0-44.0); MEAN CORPUSCULAR HEMOGLOBIN 29.3 pg (27.0-33.0); MEAN CORPUSCULAR HGB CONC 32.2 g/dl (32.0-36.5); MEAN CORPUSCULAR VOLUME 91.1 fl (80.0-96.0); MONO # 1.2 10^3/uL (0.0-0.8); MONO % 10.7 % (2.0-8.0); NEUTROPHILS # 6.9 10^3/uL (1.5-8.5); NEUTROPHILS % 62.7 % (36.0-66.0); PLATELET COUNT, AUTOMATED 621 10^3/uL (150-450); RED BLOOD COUNT 3.82 10^6/uL (4.00-5.40); WHITE BLOOD COUNT 10.9 10^3/uL (4.0-10.0)
[2021-05-09 18:00] LABS: ALBUMIN 3.1 GM/DL (3.2-5.2); ALT/SGPT 36 U/L (12-78); BILIRUBIN,TOTAL 0.4 MG/DL (0.2-1.0); BLOOD UREA NITROGEN 13 MG/DL (7-18); CALCIUM LEVEL 9.1 MG/DL (8.8-10.2); CARBON DIOXIDE LEVEL 26 MEQ/L (21-32); CHLORIDE LEVEL 108 MEQ/L (98-107); CREATININE FOR GFR 0.67 MG/DL (0.55-1.30); FERRITIN 59 NG/ML (8-252); GLOMERULAR FILTRATION RATE > 60.0 (>45); GLUCOSE, FASTING 84 MG/DL (70-100); IRON (FE) 29 UG/DL (50-170); POTASSIUM SERUM 4.2 MEQ/L (3.5-5.1); SODIUM LEVEL 141 MEQ/L (136-145); TOTAL PROTEIN 6.5 GM/DL (6.4-8.2)
== END ==
LOC: M PLALAB 15:04
PROVIDERS: ATTEND Physician Assistant Medical
DX: Z47.89 Encounter for other orthopedic aftercare (principal); Z96.642 Presence of left artificial hip joint

== ENCOUNTER → 2021-05-12 | Outpatient (CLI) | payer OTHER, MEDICAID | LOC: M SOG 08:43 | PROVIDERS: ATTEND Orthopaedic Surgery | DX: Z96.642 Presence of left artificial hip joint (principal) ==

== ENCOUNTER → 2021-06-09 | Outpatient (CLI) | payer OTHER, MEDICAID | LOC: M SOG 09:04 | PROVIDERS: ATTEND Orthopaedic Surgery | DX: Z96.642 Presence of left artificial hip joint (principal) ==

== ENCOUNTER → 2021-07-19 | Outpatient (CLI) | payer OTHER, MEDICAID ==
[~2021-07-19] MED LIST changes: -ACET1TAB16 PO; +ACET300T48 PO
== END ==
LOC: M RAD 13:03
PROVIDERS: ATTEND Physician Assistant Medical
DX: R42 Dizziness and giddiness (principal)

== ENCOUNTER → 2021-09-10 | Outpatient (CLI) | payer OTHER, MEDICAID | LOC: M SOG 08:37 | PROVIDERS: ATTEND Orthopaedic Surgery | DX: Z96.642 Presence of left artificial hip joint (principal) ==

== ENCOUNTER → 2021-10-20 | Outpatient (CLI) | payer OTHER, MEDICAID ==
[2021-10-20 15:33] LABS: BASO # 0.1 10^3/uL (0.0-0.2); BASO % 0.6 % (0.0-1.0); EOS # 0.1 10^3/uL (0.0-0.5); HEMATOCRIT 44.4 % (36.0-47.0); HEMOGLOBIN 14.5 g/dl (12.0-15.5); LYMPH # 2.6 10^3/uL (1.5-5.0); LYMPH % 31.8 % (24.0-44.0); MEAN CORPUSCULAR HEMOGLOBIN 29.7 pg (27.0-33.0); MEAN CORPUSCULAR HGB CONC 32.7 g/dl (32.0-36.5); MONO # 0.8 10^3/uL (0.0-0.8); MONO % 10.2 % (2.0-8.0); NEUTROPHILS # 4.6 10^3/uL (1.5-8.5); NEUTROPHILS % 56.2 % (36.0-66.0); PLATELET COUNT, AUTOMATED 378 10^3/uL (150-450); RED BLOOD COUNT 4.88 10^6/uL (4.00-5.40); WHITE BLOOD COUNT 8.2 10^3/uL (4.0-10.0)
[2021-10-20 16:24] LABS: FREE T4 1.1 NG/DL (0.76-1.46); THYROID STIMULATING HORMONE 1.55 uIU/ML (0.358-3.740)
== END ==
LOC: M PLALAB 12:24
PROVIDERS: ATTEND Physician Assistant Medical
DX: D50.8 Other iron deficiency anemias (principal); E07.9 Disorder of thyroid, unspecified

== ENCOUNTER → 2022-01-27 | Outpatient (CLI) | payer OTHER, MEDICAID | LOC: M WHC 09:35 | PROVIDERS: ATTEND Physician Assistant Medical | DX: Z12.31 Encounter for screening mammogram for malignant neoplasm of breast (principal) ==

== ENCOUNTER → 2022-03-24 | Outpatient (CLI) | payer OTHER, MEDICAID ==
[~2022-03-24] MED LIST changes: +MM S100C PO
== END ==
LOC: M SOG 08:06
PROVIDERS: ATTEND Orthopaedic Surgery
DX: Z96.642 Presence of left artificial hip joint (principal)

== ENCOUNTER → 2022-04-21 | Outpatient (CLI) | payer OTHER, MEDICAID ==
[2022-04-21 14:46] LABS: BASO # 0.1 10^3/uL (0.0-0.2); BASO % 0.7 % (0.0-1.0); EOS # 0.1 10^3/uL (0.0-0.5); EOS % 0.8 % (0.0-3.0); HEMATOCRIT 44.5 % (36.0-47.0); HEMOGLOBIN 14.2 g/dl (12.0-15.5); LYMPH # 2.2 10^3/uL (1.5-5.0); LYMPH % 29.8 % (24.0-44.0); MEAN CORPUSCULAR HEMOGLOBIN 29.2 pg (27.0-33.0); MEAN CORPUSCULAR HGB CONC 31.9 g/dl (32.0-36.5); MEAN CORPUSCULAR VOLUME 91.6 fl (80.0-96.0); MONO # 0.8 10^3/uL (0.0-0.8); NEUTROPHILS # 4.2 10^3/uL (1.5-8.5); NEUTROPHILS % 57.4 % (36.0-66.0); PLATELET COUNT, AUTOMATED 411 10^3/uL (150-450); RED BLOOD COUNT 4.86 10^6/uL (4.00-5.40); WHITE BLOOD COUNT 7.4 10^3/uL (4.0-10.0)
[2022-04-21 15:17] LABS: ALBUMIN 3.7 G/DL (3.2-5.2); ALKALINE PHOSPHATASE 50 U/L (46-116); ALT/SGPT 27 U/L (7.0-40); AST/SGOT < 8 U/L (<34); BILIRUBIN,TOTAL 0.7 MG/DL (0.3-1.2); BLOOD UREA NITROGEN 14 MG/DL (9-23); CALCIUM LEVEL 9.7 MG/DL (8.3-10.6); CARBON DIOXIDE LEVEL 29 MMOL/L (20-31); CHLORIDE LEVEL 109 MMOL/L (98-107); CHOLESTEROL LEVEL 209 MG/DL (<200); CHOLESTEROL RISK RATIO 2.27 (<5); CREATININE FOR GFR 0.89 MG/DL (0.55-1.30); GLOMERULAR FILTRATION RATE > 60.0 (>45); GLUCOSE, FASTING 98 MG/DL (74-106); HDL CHOLESTEROL 91.7 MG/DL (>40); IRON (FE) 71 UG/DL (50-170); LDL CHOLESTEROL 94.7 MG/DL (<100); NON-HDL-C 117 MG/DL; POTASSIUM SERUM 5.1 MMOL/L (3.5-5.1); SODIUM LEVEL 143 MMOL/L (136-145); TOTAL PROTEIN 6.8 G/DL (5.7-8.2); TRIGLYCERIDES LEVEL 113 MG/DL (<150)
[2022-04-21 15:20] LABS: PTH INTACT 57.7 PG/ML (18.5-88.0)
[2022-04-21 15:22] LABS: FERRITIN 6.9 NG/ML (7.3-270.7); TOTAL 25(OH) VITAMIN D 51.4 NG/ML (20.0-100.0)
== END ==
LOC: M PLALAB 10:21
PROVIDERS: ATTEND Physician Assistant Medical
DX: D50.8 Other iron deficiency anemias (principal); E55.9 Vitamin D deficiency, unspecified; Z13.220 Encounter for screening for lipoid disorders; Z79.899 Other long term (current) drug therapy

== ENCOUNTER → 2022-10-13 | Outpatient (REF) | payer MEDICARE, MEDICAID ==
[~2022-10-13] MED LIST changes: +IRON65TA2 PO; +PHILCAP3 PO
== END ==
LOC: M SFHCPLAZ 10:37
PROVIDERS: ATTEND Physician Assistant Medical
DX: E61.1 Iron deficiency (principal); E55.9 Vitamin D deficiency, unspecified; E03.9 Hypothyroidism, unspecified; F32.9 Major depressive disorder, single episode, unspecified; K21.9 Gastro-esophageal reflux disease without esophagitis; I10 Essential (primary) hypertension; Z13.220 Encounter for screening for lipoid disorders

== ENCOUNTER → 2022-10-23 | Outpatient (CLI) | payer MEDICARE, MEDICAID ==
[2022-10-23 15:08] LABS: BASO # 0.1 10^3/uL (0.0-0.2); BASO % 0.7 % (0.0-1.0); EOS # 0.2 10^3/uL (0.0-0.5); EOS % 2.2 % (0.0-3.0); HEMATOCRIT 47.1 % (36.0-47.0); HEMOGLOBIN 15.4 g/dl (12.0-15.5); LYMPH # 2.3 10^3/uL (1.5-5.0); LYMPH % 33.3 % (24.0-44.0); MEAN CORPUSCULAR HGB CONC 32.7 g/dl (32.0-36.5); MEAN CORPUSCULAR VOLUME 97.7 fl (80.0-96.0); MONO # 0.7 10^3/uL (0.0-0.8); MONO % 9.7 % (2.0-8.0); NEUTROPHILS # 3.7 10^3/uL (1.5-8.5); NEUTROPHILS % 53.8 % (36.0-66.0); PLATELET COUNT, AUTOMATED 336 10^3/uL (150-450); RED BLOOD COUNT 4.82 10^6/uL (4.00-5.40); WHITE BLOOD COUNT 6.8 10^3/uL (4.0-10.0)
[2022-10-23 15:26] LABS: CHOLESTEROL RISK RATIO 2.32 (<5); HDL CHOLESTEROL 89.3 MG/DL (>40); LDL CHOLESTEROL 90.5 MG/DL (<100); NON-HDL-C 118.7 MG/DL
[2022-10-23 15:30] LABS: FERRITIN 35.7 NG/ML (7.3-270.7); FREE T4 1.2 NG/DL (0.89-1.76); THYROID STIMULATING HORMONE 2.155 uIU/ML (0.55-4.78)
[2022-10-23 15:31] LABS: TOTAL 25(OH) VITAMIN D 48.8 NG/ML (20.0-100.0)
== END ==
LOC: M PLALAB 09:59
PROVIDERS: ATTEND Physician Assistant Medical
DX: E61.1 Iron deficiency (principal); E55.9 Vitamin D deficiency, unspecified; E03.9 Hypothyroidism, unspecified; F32.9 Major depressive disorder, single episode, unspecified; K21.9 Gastro-esophageal reflux disease without esophagitis; I10 Essential (primary) hypertension; Z13.220 Encounter for screening for lipoid disorders

== ENCOUNTER → 2023-03-30 | Outpatient (CLI) | payer MEDICARE, MEDICAID ==
[~2023-03-30] MED LIST changes: +B-12100010 PO; +BUSP5TA PO; +CART1TAB2 PO; +OMEG10002 PO; +PROBCAP14 PO; +TUMS500C PO; +UNIS25TA3 PO
== END ==
LOC: M SOG 07:54
PROVIDERS: ATTEND Orthopaedic Surgery
DX: Z96.642 Presence of left artificial hip joint (principal)

== ENCOUNTER → 2023-04-02 | Outpatient (CLI) | payer MEDICARE, MEDICAID | LOC: M SOG 08:03 | PROVIDERS: ATTEND Orthopaedic Surgery | DX: Z96.642 Presence of left artificial hip joint (principal) ==

== ENCOUNTER → 2023-04-08 | Outpatient (CLI) | payer MEDICARE, MEDICAID | LOC: M SOG 07:56 | PROVIDERS: ATTEND Orthopaedic Surgery | DX: Z96.642 Presence of left artificial hip joint (principal) ==

== ENCOUNTER → 2023-04-08 | Outpatient (CLI) | payer MEDICARE, MEDICAID | LOC: M WHC 10:48 | PROVIDERS: ATTEND Physician Assistant Medical | DX: Z12.31 Encounter for screening mammogram for malignant neoplasm of breast (principal) ==

== ENCOUNTER → 2023-07-12 | Outpatient (CLI) | payer OTHER, MEDICAID ==
[~2023-07-12] MED LIST changes: +BUPR-597 PO; -BUPR300T92 PO; -DOCU-153 PO; +STOO100C30 PO
[2023-07-12 14:34] LABS: IRON (FE) 78 UG/DL (50-170)
[2023-07-12 14:35] LABS: ALBUMIN 3.5 G/DL (3.2-5.2); ALKALINE PHOSPHATASE 49 U/L (46-116); ALT/SGPT 23 U/L (7.0-40); AST/SGOT 17 U/L (<34); BILIRUBIN,TOTAL 0.6 MG/DL (0.3-1.2); BLOOD UREA NITROGEN 15 MG/DL (9-23); CALCIUM LEVEL 9.1 MG/DL (8.3-10.6); CARBON DIOXIDE LEVEL 25 MMOL/L (20-31); CHLORIDE LEVEL 107 MMOL/L (98-107); CHOLESTEROL LEVEL 223 MG/DL (<200); CHOLESTEROL RISK RATIO 2.68 (<5); CREATININE FOR GFR 0.94 MG/DL (0.55-1.30); FERRITIN 28.1 NG/ML (7.3-270.7); GLOMERULAR FILTRATION RATE > 60.0 (>45); GLUCOSE, FASTING 94 MG/DL (74-106); HDL CHOLESTEROL 83.2 MG/DL (>40); NON-HDL-C 139.8 MG/DL; POTASSIUM SERUM 4.4 MMOL/L (3.5-5.1); PTH INTACT 128.8 PG/ML (18.5-88.0); SODIUM LEVEL 143 MMOL/L (136-145); THYROID STIMULATING HORMONE 2.893 uIU/ML (0.55-4.78); TOTAL PROTEIN 6.7 G/DL (5.7-8.2); TRIGLYCERIDES LEVEL 149 MG/DL (<150)
[2023-07-12 14:36] LABS: TOTAL 25(OH) VITAMIN D 66.2 NG/ML (20.0-100.0)
== END ==
LOC: M PLALAB 11:15
PROVIDERS: ATTEND Physician Assistant Medical
DX: E61.1 Iron deficiency (principal); E03.9 Hypothyroidism, unspecified; E55.9 Vitamin D deficiency, unspecified; I10 Essential (primary) hypertension; Z13.220 Encounter for screening for lipoid disorders

== ENCOUNTER → 2024-05-04 | Outpatient (CLI) | payer MEDICARE, MEDICAID ==
[2024-05-04 14:42] LABS: BASO % 0.4 % (0.0-1.0); EOS # 0.2 10^3/uL (0.0-0.5); EOS % 1.7 % (0.0-3.0); HEMATOCRIT 47.1 % (36.0-47.0); HEMOGLOBIN 15.5 g/dl (12.0-15.5); LYMPH # 2.8 10^3/uL (1.5-5.0); LYMPH % 29.7 % (24.0-44.0); MEAN CORPUSCULAR HEMOGLOBIN 31.4 pg (27.0-33.0); MEAN CORPUSCULAR HGB CONC 32.9 g/dl (32.0-36.5); MEAN CORPUSCULAR VOLUME 95.3 fl (80.0-96.0); MONO # 0.9 10^3/uL (0.0-0.8); MONO % 9.9 % (2.0-8.0); NEUTROPHILS # 5.5 10^3/uL (1.5-8.5); NEUTROPHILS % 57.9 % (36.0-66.0); PLATELET COUNT, AUTOMATED 418 10^3/uL (150-450); RED BLOOD COUNT 4.94 10^6/uL (4.00-5.40); WHITE BLOOD COUNT 9.5 10^3/uL (4.0-10.0)
[2024-05-04 14:46] LABS: ALBUMIN 3.6 G/DL (3.2-5.2); BILIRUBIN,TOTAL 0.6 MG/DL (0.3-1.2); CALCIUM LEVEL 9.9 MG/DL (8.3-10.6); CREATININE FOR GFR 1.01 MG/DL (0.55-1.30); GLOMERULAR FILTRATION RATE 57.9 (>45); POTASSIUM SERUM 4.7 MMOL/L (3.5-5.1)
[2024-05-04 14:48] LABS: FERRITIN 24.6 NG/ML (7.3-270.7)
== END ==
LOC: M PLALAB 10:44
PROVIDERS: ATTEND Physician Assistant Medical
DX: E61.1 Iron deficiency (principal); E55.9 Vitamin D deficiency, unspecified

== ENCOUNTER → 2025-01-11 | Outpatient (CLI) | payer MEDICARE, MEDICAID ==
[~2025-01-11] MED LIST changes: -ACE65ERTAB PO; +ACET-1593 PO; -BUPR-597 PO; +BUPR-766 PO; -ZOLP5TAB PO; +ZOLP5TAB9 PO
[2025-01-11 13:19] LABS: BASO # 0.0 10^3/uL (0.0-0.2); BASO % 0.4 % (0.0-1.0); EOS # 0.1 10^3/uL (0.0-0.5); EOS % 1.5 % (0.0-3.0); LYMPH # 2.5 10^3/uL (1.5-5.0); LYMPH % 25.7 % (24.0-44.0); MONO # 0.9 10^3/uL (0.0-0.8); MONO % 9.8 % (2.0-8.0); NEUTROPHILS # 5.9 10^3/uL (1.5-8.5); NEUTROPHILS % 62.1 % (36.0-66.0); PLATELET COUNT, AUTOMATED 395 10^3/uL (150-450)
[2025-01-11 13:36] LABS: ESTIMATED AVERAGE GLUCOSE 111.0 MG/DL (60-110)
[2025-01-11 13:53] LABS: CHOLESTEROL LEVEL 223.0 MG/DL (<200); CHOLESTEROL RISK RATIO 2.65 (<5); LDL CHOLESTEROL 101.9 MG/DL (<100); NON-HDL-C 138.9 MG/DL; TRIGLYCERIDES LEVEL 185.0 MG/DL (<150)
[2025-01-11 13:56] LABS: FREE T4 1.37 NG/DL (0.89-1.76)
== END ==
LOC: M PLALAB 09:37
PROVIDERS: ATTEND Physician Assistant Medical
DX: Z13.220 Encounter for screening for lipoid disorders (principal); E03.9 Hypothyroidism, unspecified; E61.1 Iron deficiency; E66.1 Drug-induced obesity

== ENCOUNTER → 2025-01-11 | Outpatient (CLI) | payer MEDICARE, MEDICAID | LOC: M WHC 09:35 | PROVIDERS: ATTEND Physician Assistant Medical | DX: Z12.31 Encounter for screening mammogram for malignant neoplasm of breast (principal); Z13.220 Encounter for screening for lipoid disorders; E03.9 Hypothyroidism, unspecified; E61.1 Iron deficiency; E66.01 Morbid (severe) obesity due to excess calories; R92.313 Mammographic fatty tissue density, bilateral breasts; Z68.35 Body mass index [BMI] 35.0-35.9, adult; Z79.899 Other long term (current) drug therapy ==